=== PATIENT | female | born 1990 | race Caucasian/White ===

== ENCOUNTER 2019-07-13 23:36 | Emergency (ER) | payer OTHER, SELFPAY ==
--- NOTE | ~2019-07-13 | XR_ITS ---
EXAMINATION: XR chest 2V DATE: 07/14/2019 00:19 INDICATION: Chest pain. TECHNIQUE: Frontal and lateral views of the chest were obtained. COMPARISON: Chest 2 views 05/13/2004, CT abdomen and pelvis 04/08/2019 FINDINGS: The chest demonstrates clear lungs without pneumonia, pleural effusion, or pneumothorax. Th e heart size is normal. IMPRESSION: 1. No acute cardiopulmonary disease. Reviewed, dictated and finalized at location A. [employer]
[2019-07-13 23:40] VITALS: BP 135/83; PULSE 93; RESP 20; TEMP 36.6; O2SAT 98
--- NOTE | 2019-07-13 23:46 | ECG_ITS ---
Measurements Intervals [place] Rate: 85 P: 66 MN: 145 QRS: 46 QRSD: 93 T: 37 QT: 366 QTc: 435 Interpretive Statements SINUS RHYTHM BASELINE WANDER- II, III NORMAL ECG Electronically Signed On 07-14-2019 7:24:36 GRANTS ADMINISTRATOR by Riley Montgomery D.O.
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
[2019-07-13 23:47] VITALS: BP 135/83; PULSE 88; RESP 20; O2SAT 98
[2019-07-13 23:58] LABS: Basophils Absolute Auto 0.1 K/mm3 (0.0-0.1); Basophils Percent Auto 0.5 % (0.2-1.2); Eosinophils Absolute Auto 0.2 K/mm3 (0-0.3); Eosinophils Percent Auto 2.3 % (0-4.4); Hematocrit 37.7 % (37.0-47.0); Hemoglobin 12.5 g/dL (12.0-15.0); Immature Granulocyte Absolute 0.02 K/mm3 (0.00-0.031); Immature Granulocyte Percent A 0.2 % (0-0.5); Lymphocytes Absolute Auto 3.16 K/mm3 (0.9-3.2); Lymphocytes Percent Auto 29.6 % (18.3-44.2); Mean Corpuscular HGB Conc 33.2 g/dl (32-36); Mean Corpuscular Hemoglobin 30.5 pg (26-34); Monocytes Absolute Auto 1.4 K/mm3 (0.1-0.6); Neutrophils Absolute Auto 5.8 K/mm3 (1.3-6.7); Neutrophils Percent Auto 54.4 % (45.5-73.1); Platelet Count Result 191 k/mm3 (150-375); Red Cell Distribution Width 14.1 % (11.5-14.5); White Blood Count 10.7 K/mm3 (4.5-10.0)
[2019-07-14] MEDS: KETOROLAC 30 MG/ML VIAL (*BKC) IV PUSH (00:04)
[2019-07-14 00:08] LABS: Prothrombin Time 12.5 Seconds (11.1-14.7)
[2019-07-14 00:09] LABS: Partial Thromboplastin Time 30.7 SECONDS (22.3-36.8)
[2019-07-14 00:11] LABS: D Dimer 0.42 ug/mL (<0.48)
[2019-07-14 00:39] VITALS: BP 115/70; PULSE 89; RESP 20; O2SAT 99
[2019-07-14 01:28] LABS: Blood Urea Nitrogen 13 mg/dL (7-17); Calcium 8.7 mg/dL (8.4-10.2); Carbon Dioxide 24 mmol/L (22-30); Chloride 100 mmol/L (98-107); Estimated CRCL calculation 111 ml/min; Estimated Glomerular Filt Rate > 60; Glucose 103 mg/dL (65-105); Potassium 3.4 mmol/L (3.4-5.0); Sodium 138 mmol/L (137-145)
[2019-07-14 01:38] VITALS: BP 91/65; PULSE 65; RESP 20; O2SAT 98
[2019-07-14 01:40] LABS: Troponin I < 0.012 ng/mL (0.000-0.034)
--- NOTE | 2019-07-14 02:15 | PC.NURSE ---
called lab to add on Hepatic and Lipase
[2019-07-14 02:26] LABS: Alanine Aminotransferase 11 U/L (4-35); Alkaline Phosphatase 87 U/L (38-126); Aspartate Amino Transferase 22 U/L (14-36); Bilirubin,Total 0.3 mg/dL (0.2-1.3); Lipase 81 U/L (23-300)
[2019-07-14 03:17] LABS: Troponin I < 0.012 ng/mL (0.000-0.034)
[2019-07-14 03:26] VITALS: BP 104/74; PULSE 94; RESP 20; O2SAT 99
== END 2019-07-14 03:57 | disposition home or self-care (01) ==
PROVIDERS: Emergency Provider Emergency Medicine; PCP Internal Medicine
DX: R07.89 Other chest pain (principal); F90.9 Attention-deficit hyperactivity disorder, unspecified type; F41.9 Anxiety disorder, unspecified; Z87.442 Personal history of urinary calculi; F91.3 Oppositional defiant disorder; F43.10 Post-traumatic stress disorder, unspecified; Q87.2 Congenital malformation syndromes predominantly involving limbs; Z93.3 Colostomy status
CPT/HCPCS: 36415; 71046; 80048; 80076; 83690; 84484; 85025; 85380; 85610; 85730; 93005; 96374; 99284; J1885

== ENCOUNTER 2021-09-20 13:25 | Emergency (ER) | payer OTHER, SELFPAY ==
--- NOTE | ~2021-09-20 | CT_ITS ---
EXAMINATION: CT abdomen pelvis w con DATE: 09/20/2021 20:23 INDICATION: abdominal pain, decreased ostomy output TECHNIQUE: Computed tomography (CT) of the abdomen and pelvis was performed with 100 mL Omnipaque-300 intravenous contrast. Automated exposure control and iterative reconstruction technique were employe d. The dose-length product was 1210.09 mGy-cm. COMPARISON: 04/08/2019. FINDINGS: Lower thorax: Unremarkable Liver: Normal. Biliary/Gallbladder: Gallbladder is absent. No bile duct dilation. Spleen: Normal. Pancreas: No mass or duct dilation. Adrenals:No mass. Kidneys: Right kidney absent. Ectopic left kidney and ureter. Decreased mild hydronephrosis on the le ft. GI tract: Status post hemicolectomy. No large or small bowel dilation. Appendix not visualized. Mesentery/Peritoneum: No free air. Extensive mesenteric lymphadenopathy Retroperitoneum: No mass. 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 Interval decreased enhancement in the left adnexa, possibly representing improved pyosalpinx. Uterine didelphys. Persistent right adnex al cystic/tubular mass, possibly representing hydrosalpinx. Multilobulated simple cystic left pelvic structure possibly related to left ovary, overall slightly decreased in size since the prior study, w hich favors benign etiology such as ovarian cyst, benign ovarian neoplasm, or lymphangioma. Soft Tissues: Uncomplicated appearing right upper quadrant ostomy. Bones: No acute osseous finding. 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 IMPRESSION: Right upper quadrant ostomy appears patent. No CT evidence of bowel obstruction. Marked mesenteric ly mphadenopathy. Multiple additional chronic and congenital findings detailed above. Reviewed, dictated and finalized at location [facility]. IMPRESSION: Right upper quadrant ostomy appears patent. No CT evidence of bowel obstruction . Marked mesenteric lymphadenopathy. Multiple additional chronic and congenital findings detailed above.
[2021-09-20 14:14] VITALS: BP 118/81; PULSE 97; RESP 20; TEMP 37; O2SAT 100
[2021-09-20 14:47] LABS: Basophils Absolute Auto 0.1 K/mm3 (0.0-0.1); Basophils Percent Auto 0.7 % (0.2-1.2); Eosinophils Absolute Auto 0.4 K/mm3 (0-0.3); Eosinophils Percent Auto 3.5 % (0-4.4); Hematocrit 42.9 % (37.0-47.0); Hemoglobin 13.6 g/dL (12.0-15.0); Immature Granulocyte Absolute 0.03 K/mm3 (0.00-0.031); Immature Granulocyte Percent A 0.3 % (0-0.5); Lymphocytes Absolute Auto 2.78 K/mm3 (0.9-3.2); Mean Corpuscular HGB Conc 31.7 g/dl (32-36); Mean Corpuscular Hemoglobin 30.7 pg (26-34); Mean Corpuscular Volume 96.8 fl (80-100); Mean Platelet Volume 10.6 fl (7.4-10.4); Monocytes Absolute Auto 0.7 K/mm3 (0.1-0.6); Neutrophils Absolute Auto 6.3 K/mm3 (1.3-6.7); Neutrophils Percent Auto 61.5 % (45.5-73.1); Platelet Count Result 308 k/mm3 (150-375); Red Blood Count 4.43 M/mm3 (4.2-5.4); Red Cell Distribution Width 12.5 % (11.5-14.5); White Blood Count 10.3 K/mm3 (4.5-10.0)
[2021-09-20 14:56] LABS: Alanine Aminotransferase 48 U/L (6-35); Albumin Level 4.4 g/dL (3.5-5.1); Alkaline Phosphatase 143 U/L (38-126); Anion Gap 8 mmol/L (8-16); Aspartate Amino Transferase 32 U/L (14-36); Bilirubin,Total 0.2 mg/dL (0.2-1.3); Blood Urea Nitrogen 19 mg/dL (7-17); Calcium 9.2 mg/dL (8.4-10.2); Carbon Dioxide 21 mmol/L (22-30); Chloride 109 mmol/L (98-107); Estimated CRCL calculation 91 ml/min; Estimated Glomerular Filt Rate > 60; Glucose 100 mg/dL (65-110); Lipase 97 U/L (23-300); Potassium 4.2 mmol/L (3.4-5.0); Sodium 138 mmol/L (137-145)
[2021-09-20 15:00] LABS: Appearance Urine Slightly Cloudy (Clear); Bilirubin Urine Negative (Negative); Blood Urine Trace-lysed (Negative); Color Urine Yellow (Yellow); Glucose Urine UA Negative (Negative); Ketones Urine Negative (Negative); Leukocyte Esterase Ur Trace LEU/UL (Negative); Nitrate Urine Negative (Negative); Protein Urine Trace mg/dL (Negative); Urobilinogen Urine 0.2 mg/dL (<2.0); pH Urine 6.5 (5.0-9.0)
[2021-09-20 15:04] LABS: Bacteria Urine 1+ /hpf; Mucus Urine Rare /lpf; Squamous Epithelial Cell Urine Rare /hpf (Few); WBC Urine >75 /hpf
[2021-09-20 15:05] LABS: Add Urine Microscopic? YES
[2021-09-20 20:02] LABS: Pregnancy On Board Control Positive; Urine Pregnancy Test Negative
[2021-09-20 21:40] VITALS: BP 115/81; PULSE 86; RESP 16; O2SAT 99
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
[2021-09-20] MEDS: HYDROcodone/acetaminophen (*CRX) 5-325 MG TABLET 1 TAB PO (23:33)
[2021-09-20 23:45] VITALS: BP 118/69; PULSE 77; RESP 18; O2SAT 98
== END 2021-09-20 23:48 | disposition home or self-care (01) ==
PROVIDERS: Emergency Medicine; Emergency Provider Emergency Medicine; PCP Internal Medicine
DX: R10.9 Unspecified abdominal pain (principal); F90.9 Attention-deficit hyperactivity disorder, unspecified type; F41.9 Anxiety disorder, unspecified; F32.A Depression, unspecified; F91.3 Oppositional defiant disorder; F43.10 Post-traumatic stress disorder, unspecified; Q87.2 Congenital malformation syndromes predominantly involving limbs; Z87.442 Personal history of urinary calculi; Z93.3 Colostomy status; Q60.0 Renal agenesis, unilateral; Q50.01 Congenital absence of ovary, unilateral
CPT/HCPCS: 36415; 74177; 80053; 81001; 81025; 83690; 85025; 87086; 99284; A9270; Q9967